=== PATIENT | female | born 1995 | race Caucasian/White ===

== ENCOUNTER 2017-02-18 11:09 | Emergency (ER) | payer OTHER ==
[2017-02-18 11:30] VITALS: TEMP 99.1; O2SAT 100
--- NOTE | 2017-02-18 11:36 | ED.PDOC ---
History of Present Illness - General Chief Complaint: Abdominal Pain Stated Complaint: N,V,RLQ abdominal pain Time Seen by Provider: 02/18/17 11:15 Information Source: patient, RN notes reviewed, Vital Signs reviewed Exam Limitations: no limitations - History of Present Illness Initial Comments: Patient presents to ER from clinic with c/o lower abdominal pain with nausea and vomiting since yesterday. Patient describes the pain as stabbing and across her uterus. Touching makes the pain worse. + urinary frequency but no dysuria. No fever or chills but she is cold. Abdominal Pain Onset Location: suprapubic Pain Radiation: no radiation Quality: moderate, sharpness, stabbing Timing/Duration: 24 hours Improving Factors: nothing Worsening Factors: other - touching Associated Symptoms: nausea/vomiting Review of Systems - Review of Systems Constitutional: States: chills. Denies: fever, malaise EENTM: States: no symptoms reported Respiratory: States: no symptoms reported Cardiology: States: no symptoms reported Gastrointestinal/Abdominal: States: see HPI, abdominal pain, nausea, vomiting. Denies: constipation, diarrhea Genitourinary: States: see HPI, frequency. Denies: dysuria, pain Musculoskeletal: States: no symptoms reported Skin: States: no symptoms reported Neurological: States: no symptoms reported All other Systems: No Change from Baseline Past Medical History (General) - Patient Medical History Hx Congestive Heart Failure: No Hx Diabetes: No Surgical History: no surgical history - Vaccination History Hx Influenza Vaccination: No - Social History Hx Tobacco Use: No - Female History Patient is a Female of Child Bearing Age (10 -59 yrs old): Yes Family Medical History - Family History Mother Family History: Unknown Living Status: Still Living Physical Exam - Physical Exam General Appearance: Alert, Anxious, Comfortable, No apparent distress, Well Developed, Well Groomed, Well Hydrated, Well Nourished Neck: full range of motion, supple, normal inspection Respiratory: lungs clear, normal breath sounds, no respiratory distress, no accessory muscle use Cardiovascular/Chest: regular rate, rhythm, no edema, no gallop, no JVD, no murmur Gastrointestinal/Abdominal: normal bowel sounds, soft, no organomegaly, no pulsatile mass, guarding - RLQ, tenderness - RLQ w/o rebound Back Exam: normal inspection Extremity: normal range of motion, normal inspection, no pedal edema Neurologic: alert, normal mood/affect, oriented x 3 Skin Exam: normal color, warm/dry Special Observations: Other - Reports she is hungry Comments: Vital Signs 02/18/17 11:26 Temperature 99.1 F Pulse Rate [ 87 Right Brachial] Respiratory 16 Rate Blood Pressure 116/80 [Right Arm] O2 Sat by Pulse 100 Oximetry Progress - Progress Progress: 02/18/17 12:55 Discussed results with patient and need for a pelvic sonogram in 6 weeks to make sure ovarian cyst has resolved. Discussed possibility of cyst rupture and pain that can come from that. - Results/Orders Results/Orders: Laboratory Tests 02/18/17 02/18/17 02/18/17 11:35 11:49 11:49 WBC 7.1 RBC 4.28 Hgb 12.5 Hct 37.1 MCV 86.8 MCH 29.3 MCHC 33.7 RDW 14.3 Plt Count 230 MPV 8.9 Absolute Neuts (auto) 4.50 Absolute Lymphs (auto) 2.10 Absolute Monos (auto) 0.40 Absolute Eos (auto) 0.10 Absolute Basos (auto) 0.00 Neutrophils % 63.7 Lymphocytes % 29.8 Monocytes % 5.1 Eosinophils % 1.3 Basophils % 0.1 Sodium 137 Potassium 3.2 L Chloride 104 Carbon Dioxide 26 Anion Gap 10.2 L BUN 7 Creatinine 0.60 BUN/Creatinine Ratio 11.7 Random Glucose 97 Serum Osmolality 271.7 L Calcium 9.4 Total Bilirubin 0.7 AST 18 ALT 15 Alkaline Phosphatase 49 L Serum Total Protein 7.8 Albumin 4.7 Globulin 3.1 Albumin/Globulin Ratio 1.5 Urine Color Yellow Urine Appearance Clear Urine pH 7.0 Ur Specific [place] 1.025 Urine Protein Negative Urine Glucose (UA) Negative Urine Ketones Trace Urine Blood Negative Urine Nitrite Negative Urine Bilirubin Negative Urine Urobilinogen 1.0 Ur Leukocyte Esterase Negative Urine RBC 0 Urine WBC 0-1 Ur Epithelial Cells 5-10 Urine Bacteria Rare Urine HCG, Qual 02/18/17 11:49 WBC RBC Hgb Hct MCV MCH MCHC RDW Plt Count MPV Absolute Neuts (auto) Absolute Lymphs (auto) Absolute Monos (auto) Absolute Eos (auto) Absolute Basos (auto) Neutrophils % Lymphocytes % Monocytes % Eosinophils % Basophils % Sodium Potassium Chloride Carbon Dioxide Anion Gap BUN Creatinine BUN/Creatinine Ratio Random Glucose Serum Osmolality Calcium Total Bilirubin AST ALT Alkaline Phosphatase Serum Total Protein Albumin Globulin Albumin/Globulin Ratio Urine Color Urine Appearance Urine pH Ur Specific [place] Urine Protein Urine Glucose (UA) Urine Ketones Urine Blood Urine Nitrite Urine Bilirubin Urine Urobilinogen Ur Leukocyte Esterase Urine RBC Urine WBC Ur Epithelial Cells Urine Bacteria Urine HCG, Qual Negative - EKG/XRAY/CT CT Ordered: Yes - Abd/Pel: 16mm evolving follicular ovarian cyst, o/w normal per Radiologist Departure - Departure Clinical Impression: Ovarian cyst, right Nausea & vomiting Qualifiers: Vomiting type: bilious vomiting Qualified Code(s): R11.14 - Bilious vomiting Time of Disposition: 12:57 Disposition: Discharge to Home or Self Care Condition: Good Departure Forms: ED Discharge - Pt. Copy, Patient Portal Self Enrollment, Work Release Form Instructions: DI for Ovarian Cyst Diet: resume usual diet Activity: increase activity as tolerated Prescriptions: Ondansetron [Zofran Odt] 4 mg PO Q6HR PRN #20 tab PRN Reason: Nausea/Vomiting Home Medications: Ambulatory Orders Cholecalciferol [Vitamin D3] 5,000 unit PO DAILY 02/18/17 Ondansetron [Zofran Odt] 4 mg PO Q6HR PRN #20 tab 02/18/17 Additional Instructions: Follow up with PCP for pelvic sonogram in 6 weeks
[2017-02-18] MEDS ORDERED: ONDANSETRON INJ 4 MG/2 ML VIAL IV ONE (11:39)
--- NOTE | 2017-02-18 12:43 | CT ---
Study: CT abdomen and pelvis. Indication: RLQ abd pain Technique: Venous and delayed phase CT imaging of the abdomen and pelvis obtained after intravenous administration of contrast. This exam was performed according to our departmental dose-optimization program, which includes automated exposure control, adjustment of the mA and/or kV according to patient size and/or use of iterative reconstruction technique. Comparison: None. Findings: Lower chest, liver, gallbladder, pancreas, spleen, adrenal glands, left kidney, uterus, and left adnexa are unremarkable. Tiny subcentimeter right renal cyst. A presumed involuting right ovarian follicular cyst noted measuring 16 mm. It demonstrates thickened enhancing gomez and low density centrally and is ultimately nonspecific by CT and given the complexity. Stomach, small bowel, colon, and appendix unremarkable. No free fluid. No free air. No pathologically enlarged lymphadenopathy. No acute osseous abnormality. Impression: Normal CT appearance of the appendix. Indeterminate complex cystic right ovarian lesion but likely involuting ovarian follicle. Pelvic sonogram could better evaluate. Electronically signed by: Maynor Quiles MD 02/18/2017 12:42 PM [employer]
[2017-02-18 13:11] VITALS: BP 107/72
== END 2017-02-18 13:11 | disposition home or self-care (01) ==
LOC: ER 11:09
DX: N83.201 Unspecified ovarian cyst, right side (principal); R11.14 Bilious vomiting
CPT/HCPCS: 36415; 74177; 80053; 81001; 81025; 85025; J2405

== ENCOUNTER 2017-03-29 21:09 | Emergency (ER) | payer SELFPAY ==
[2017-03-30 00:32] VITALS: O2SAT 100
--- NOTE | 2017-03-30 01:20 | ED.PDOC ---
History of Present Illness - General Chief Complaint: Respiratory Problem Stated Complaint: chills, ear pain, and sore throat. Time Seen by Provider: 03/30/17 01:14 Source: patient Exam Limitations: no limitations - History of Present Illness Initial Comments: Meera Dale 21 y/o female brought by mom with left earache ,nasal congestion and cough since yesterday .Had used ciprodex but not working. Timing/Duration: yesterday Severity: moderate EENT Location: ear (L), nose Prearrival Treatment: other - see hpi Presenting Symptoms: see hpi Improving Factors: nothing Worsening Factors: other - see hpi Associated Symptoms: other - see hpi Allergies/Adverse Reactions: Allergies Cefprozil [From Cefzil] Allergy (Verified 03/30/17 00:32) Home Medications: Ambulatory Orders Cholecalciferol [Vitamin D3] 5,000 unit PO DAILY 02/18/17 Ondansetron [Zofran Odt] 4 mg PO Q6HR PRN #20 tab 02/18/17 Amoxicillin [Amoxil] 1,000 mg PO BID #40 cap 03/30/17 Review of Systems - Review of Systems Constitutional: States: no symptoms reported EENTM: States: see HPI Respiratory: States: no symptoms reported Cardiology: States: no symptoms reported Gastrointestinal/Abdominal: States: no symptoms reported All other Systems: Reviewed and Negative, No Change from Baseline Past Medical History (General) - Patient Medical History Hx Congestive Heart Failure: No Hx Diabetes: No Hx Other PMH: Yes - multiple sclerosis Surgical History: no surgical history - Vaccination History Hx Influenza Vaccination: No Immunizations Up to Date: Yes - Social History Hx Tobacco Use: No Family Medical History - Family History Mother Family History: Unknown Living Status: Still Living Physical Exam - Physical Exam General Appearance: Alert, Comfortable, No apparent distress Eye Exam: bilateral normal Ear Exam: left ear: TM red, bilateral ear: auricle normal, canal normal Nasal Exam: other - nasal congestion left >right Throat Exam: normal mouth inspection, other - post nasal drip Neck: non-tender, full range of motion, normal inspection, trachea midline Cardiovascular/Respiratory: regular rate, rhythm, no M/R/G, normal peripheral pulses Abdominal Exam: non-tender, no organomegaly Neurologic: no motor/sensory deficits, alert, oriented x 3 Skin Exam: normal color, warm/dry Progress - Progress Progress: 03/30/17 01:26 Last Vital Signs Temp 99.0 F 03/30/17 00:28 Pulse 107 H 03/30/17 00:28 Resp 18 03/30/17 00:28 BP 113/65 03/30/17 00:28 Pulse Ox 100 03/30/17 00:28 - Results/Orders Results/Orders: Flu swab negative Departure - Departure Clinical Impression: Left otitis media Qualifiers: Otitis media type: unspecified Chronicity: unspecified Qualified Code(s): H66.92 - Otitis media, unspecified, left ear Upper respiratory infection Qualifiers: URI type: unspecified URI Qualified Code(s): J06.9 - Acute upper respiratory infection, unspecified Disposition: Discharge to Home or Self Care Condition: Fair Departure Forms: ED Discharge - Pt. Copy, Patient Portal Self Enrollment Instructions: Middle Ear Infection Prescriptions: Amoxicillin [Amoxil] 1,000 mg PO BID #40 cap Home Medications: Ambulatory Orders Cholecalciferol [Vitamin D3] 5,000 unit PO DAILY 02/18/17 Ondansetron [Zofran Odt] 4 mg PO Q6HR PRN #20 tab 02/18/17 Amoxicillin [Amoxil] 1,000 mg PO BID #40 cap 03/30/17 Additional Instructions: Con tinue with Afrin 2 sprays each nostril am/pm 3 days on 3 days off for nasal congestion;Aleve 1-2 tablets am/pm for pain (over the counter)
[2017-03-30] MEDS ORDERED: AMOXICILLIN 500 MG CAP PO ONE (01:27)
[2017-03-30] MEDS ORDERED: OXYMETAZOLINE NASAL SPRAY 15 ML BTTL BNAS PRN (01:32)
[2017-03-30 02:04] VITALS: BP 116/74; TEMP 99.9
== END 2017-03-30 02:04 | disposition home or self-care (01) ==
LOC: ER 21:09
DX: H66.92 Otitis media, unspecified, left ear (principal); J06.9 Acute upper respiratory infection, unspecified; G35 Multiple sclerosis; Z88.8 Allergy status to other drugs, medicaments and biological substances

== ENCOUNTER 2019-06-27 11:33 | Emergency (ER) | payer BC ==
--- NOTE | 2019-06-27 12:43 | ED.PDOC ---
History of Present Illness - General Chief Complaint: General Stated Complaint: Fatigue, numbness Time Seen by Provider: 06/27/19 12:24 Source: patient, RN notes reviewed, Vital Signs reviewed, family - Mother Exam Limitations: no limitations - History of Present Illness Initial Comments: Patient is a 23-year-old white female who presents with complaints of dizziness, fatigue, numbness in her arms and hands, being off balance and feeling like her MS is in flare. Patient has not been under treatment for over 2 years as she has had no health insurance. She recently obtained health insurance. She has no PCP or neurologist that she follows up with. Nothing makes this dizziness, numbness and weakness better or worse. Patient denies any headaches, fever, chills, nausea, vomiting, chest pain, shortness of breath. Patient admits to intermittent diarrhea. Timing/Duration: 1 week Severity: moderate Improving Factors: nothing Worsening Factors: nothing Associated Symptoms: malaise, weakness Allergies/Adverse Reactions: Allergies Cefprozil [From Cefzil] Allergy (Verified 03/30/17 00:32) Home Medications: Ambulatory Orders Cholecalciferol [Vitamin D3] 5,000 unit PO DAILY 02/18/17 Methylprednisolone [Medrol Dose Mac] 4 mg PO DAILY 6 Days #21 tab 06/27/19 Review of Systems - Review of Systems Constitutional: States: see HPI, malaise, weakness. Denies: chills, diaphoresis, fever EENTM: States: no symptoms reported. Denies: blurred vision, double vision, nose congestion, throat swelling, mouth swelling Respiratory: States: no symptoms reported. Denies: cough, short of breath, stridor, wheezing Cardiology: States: no symptoms reported. Denies: chest pain, palpitations, syncope Gastrointestinal/Abdominal: States: see HPI, diarrhea. Denies: abdominal pain, nausea, vomiting Genitourinary: States: see HPI, frequency. Denies: discharge, hematuria Musculoskeletal: States: no symptoms reported. Denies: back pain, muscle pain, neck pain Skin: States: no symptoms reported. Denies: change in color, rash Neurological: States: see HPI, weakness. Denies: paresthesia, tingling, tremors Endocrine: States: no symptoms reported. Denies: excessive sweating, in tolerance to cold, intolerance to heat Hematologic/Lymphatic: States: no symptoms reported. Denies: anemia, easy bleeding, easy bruising All other Systems: Reviewed and Negative Past Medical History (General) - Patient Medical History Hx Congestive Heart Failure: No Hx Diabetes: No - Vaccination History Hx Influenza Vaccination: No - Social History Hx Tobacco Use: No Family Medical History - Family History Mother Family History: Unknown Living Status: Still Living Physical Exam - Physical Exam General Appearance: Alert, Comfortable, Well Developed, Well Hydrated, Well Nourished Eye Exam: bilateral normal Ears, Nose, Throat: hearing grossly normal, normal pharynx Neck: non-tender, full range of motion, supple, normal inspection Respiratory: chest non-tender, lungs clear, normal breath sounds, no respiratory distress, no accessory muscle use Cardiovascular/Chest: normal peripheral pulses, regular rate, rhythm, no edema, no gallop, no JVD, no murmur Peripheral Pulses: radial,right: 2+, radial,left: 2+ Gastrointestinal/Abdominal: normal bowel sounds, soft, tenderness - Suprapubic Back Exam: normal inspection, no CVA tenderness, no vertebral tenderness Extremity: normal range of motion, non-tender, normal inspection, no pedal edema, no calf tenderness 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 06/27/19 13:23 Will start patient on a Medrol Dosepak and refer to primary care for referral out to neurology for further care. I discussed this plan of care with the patient and her mother and they voiced understanding and agreement. Crescencio Cannon M.D. #[id number] - Results/Orders Results/Orders: Laboratory Results - last 24 hr 06/27/19 12:24 Urine Color Yellow Urine Appearance Clear Urine pH 7.0 Ur Specific [place] 1.015 Urine Protein Negative Urine Glucose (UA) Negative Urine Ketones Negative Urine Blood Negative Urine Nitrite Negative Urine Bilirubin Negative Urine Urobilinogen 0.2 Ur Leukocyte Esterase Negative Urine RBC 0 Urine WBC 0 Ur Epithelial Cells 1-3 Amorphous Sediment 1+ Urine Bacteria 0 Departure - Departure Clinical Impression: Multiple sclerosis Time of Disposition: 13:26 Disposition: Discharge to Home or Self Care Condition: Good Departure Forms: ED Discharge - Pt. Copy, Patient Portal Self Enrollment Diet: resume usual diet Activity: increase activity as tolerated Referrals: Leander Smith MD [Primary Care Provider] - 1-5 Days Prescriptions: Methylprednisolone [Medrol Dose Mac] 4 mg PO DAILY 6 Days #21 tab Home Medications: Ambulatory Orders Cholecalciferol [Vitamin D3] 5,000 unit PO DAILY 02/18/17 Methylprednisolone [Medrol Dose Mac] 4 mg PO DAILY 6 Days #21 tab 06/27/19
[2019-06-27 13:38] VITALS: BP 105/64; TEMP 98.1; O2SAT 99
== END 2019-06-27 13:37 | disposition home or self-care (01) ==
LOC: ER 11:33
DX: G35 Multiple sclerosis (principal); R42 Dizziness and giddiness; R53.83 Other fatigue; R20.0 Anesthesia of skin; Z88.1 Allergy status to other antibiotic agents

== ENCOUNTER 2019-11-03 13:59 | Emergency (ER) | payer BC ==
--- NOTE | 2019-11-03 14:19 | ED.PDOC ---
History of Present Illness - General Time Seen by Provider: 11/03/19 14:07 Source: patient, RN notes reviewed, Vital Signs reviewed, EMS notes reviewed, EMS Exam Limitations: no limitations - History of Present Illness Initial Comments: 23-year-old female who presents by EMS for nausea, anxiety and feeling short of breath. 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 After about 15 minutes, she began to feel anxious, chest tightness, shortness of breath and nausea. She went and sat down inside in the air conditioned area and began to feel improved. EMS was called to bring her to ED for further evaluation. She denies chest pain at this time. She denies any recent fever, vomiting, diarrhea, cough or sore throat. Last menstrual period was 1 week ago. She denies any dysuria or hematuria. Allergies/Adverse Reactions: Allergies Cefprozil [From Cefzil] Allergy (Verified 11/03/19 14:26) Home Medications: Ambulatory Orders Cholecalciferol [Vitamin D3] 5,000 unit PO DAILY 02/18/17 Cyanocobalamin [B12] 1,000 mcg PO DAILY 11/03/19 Potassium Chloride Tab [K-Dur] 20 meq PO DAILY #10 tab 11/03/19 Sulfamethoxazole-Trimethoprim [Bactrim Ds 800-160 mg] 1 tab PO BID 7 Days #14 tab 11/03/19 Review of Systems - Review of Systems Constitutional: Denies: chills, fever, weakness EENTM: Denies: blurred vision, throat pain, throat swelling Respiratory: States: short of breath. Denies: cough, wheezing Cardiology: Denies: edema, palpitations, syncope Gastrointestinal/Abdominal: States: nausea. Denies: abdominal pain, vomiting Genitourinary: Denies: dysuria, frequency, hematuria Musculoskeletal: Denies: back pain, neck pain Skin: States: no symptoms reported Neurological: States: anxiety. Denies: headache, paresthesia, seizure All other Systems: Reviewed and Negative Past Medical History (General) - Patient Medical History Hx Congestive Heart Failure: No Hx Diabetes: No - Vaccination History Hx Tetanus, Diphtheria Vaccination: No Hx Influenza Vaccination: No Hx Pneumococcal Vaccination: No - Social History Hx Tobacco Use: No Hx Alcohol Use: No Family Medical History - Family History Mother Family History: Unknown Living Status: Still Living Physical Exam - Physical Exam General Appearance: Alert, Comfortable, No apparent distress Neck: non-tender, full range of motion, supple Respiratory: chest non-tender, lungs clear, normal breath sounds, no respiratory distress, no accessory muscle use Cardiovascular/Chest: regular rate, rhythm, no edema, no murmur Gastrointestinal/Abdominal: non tender, soft, no pulsatile mass Back Exam: no CVA tenderness, no vertebral tenderness Extremity: normal range of motion, non-tender, no pedal edema, no calf tenderness 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 In ED, patient has no symptoms and vital signs have been stable. Chest x-ray, EKG are reassuring. I discussed with patient labs showing a urinary tract infection and mildly low potassium. Will treat with antibiotic for UTI and potassium supplement and have her blood rechecked within 1 week by her PCP. Patient feels comfortable going home and will follow up with PCP for continued evaluation. Strict return precautions given. - Results/Orders Results/Orders: CHEST XRAY EXAM: XR Chest, 1 View CLINICAL HISTORY: The patient is 23 years old and is Female; short of breath TECHNIQUE: Single view of the chest. COMPARISON: No relevant prior studies available. FINDINGS: Lungs: Hyperinflation. No consolidation. Pleural space: Unremarkable. No pneumothorax. Heart: Unrema rkable. No cardiomegaly. Mediastinum: Unremarkable. Bones/joints: No acute fracture. Upper abdomen: No free air in the visualized upper abdomen. IMPRESSION: Hyperinflation. No consolidation. 11/03/19 14:15 EKG .ONCE 11/03/19 14:28 URINE CULTURE W/COLONY COUNT Stat Laboratory Results - last 24 hr 11/03/19 11/03/19 11/03/19 13:14 13:14 13:14 WBC 7.9 RBC 4.30 Hgb 13.4 Hct 38.6 MCV 89.7 MCH 31.0 MCHC 34.6 RDW 13.0 Plt Count 269 MPV 8.9 Absolute Neuts (auto) 4.20 Absolute Lymphs (auto) 3.20 Absolute Monos (auto) 0.40 Absolute Eos (auto) 0.10 Absolute Basos (auto) 0.00 Neutrophils % 52.3 Lymphocytes % 40.1 Monocytes % 5.6 Eosinophils % 1.8 Basophils % 0.2 Sodium 138 Potassium 3.1 L Chloride 105 Carbon Dioxide 20 L Anion Gap 16.1 BUN 7 Creatinine 0.63 BUN/Creatinine Ratio 11.1 Random Glucose 95 Serum Osmolality 273.5 L Calcium 9.2 Total Bilirubin 0.8 AST 20 ALT 20 Alkaline Phosphatase 55 Serum Total Protein 8.1 Albumin 4.8 Globulin 3.3 Albumin/Globulin Ratio 1.5 Lipase 23 Serum HCG, Qual Negative Urine Color Urine Appearance Urine pH Ur Specific [place] Urine Protein Urine Glucose (UA) Urine Ketones Urine Blood Urine Nitrite Urine Bilirubin Urine Urobilinogen Ur Leukocyte Esterase Urine RBC Urine WBC Ur Epithelial Cells Urine Bacteria 11/03/19 14:28 WBC RBC Hgb Hct MCV MCH MCHC RDW Plt Count MPV Absolute Neuts (auto) Absolute Lymphs (auto) Absolute Monos (auto) Absolute Eos (auto) Absolute Basos (auto) Neutrophils % Lymphocytes % Monocytes % Eosinophils % Basophils % Sodium Potassium Chloride Carbon Dioxide Anion Gap BUN Creatinine BUN/Creatinine Ratio Random Glucose Serum Osmolality Calcium Total Bilirubin AST ALT Alkaline Phosphatase Serum Total Protein Albumin Globulin Albumin/Globulin Ratio Lipase Serum HCG, Qual Urine Color Yellow Urine Appearance Cloudy Urine pH 8.5 H Ur Specific [place] 1.020 Urine Protein Negative Urine Glucose (UA) Negative Urine Ketones Negative Urine Blood Negative Urine Nitrite Negative Urine Bilirubin Negative Urine Urobilinogen 0.2 Ur Leukocyte Esterase Large H Urine RBC 0-1 Urine WBC 20-30 H Ur Epithelial Cells >50 Urine Bacteria 1+ Departure - Departure Clinical Impression: Atypical chest pain, Hypokalemia UTI (urinary tract infection) Qualifiers: Urinary tract infection type: acute cystitis Hematuria presence: without hematuria Qualified Code(s): N30.00 - Acute cystitis without hematuria Time of Disposition: 15:31 Disposition: Discharge to Home or Self Care Condition: Good Instructions: Urinary Tract Infection, Adult (DC) Diet: resume usual diet Activity: increase activity as tolerated Referrals: Leander Smith MD [Primary Care Provider] - 1-2 Days Prescriptions: Sulfamethoxazole-Trimethoprim [Bactrim Ds 800-160 mg] 1 tab PO BID 7 Days #14 tab Potassium Chloride Tab [K-Dur] 20 meq PO DAILY #10 tab Home Medications: Ambulatory Orders Cholecalciferol [Vitamin D3] 5,000 unit PO DAILY 02/18/17 Cyanocobalamin [B12] 1,000 mcg PO DAILY 11/03/19 Potassium Chloride Tab [K-Dur] 20 meq PO DAILY #10 tab 11/03/19 Sulfamethoxazole-Trimethoprim [Bactrim Ds 800-160 mg] 1 tab PO BID 7 Days #14 tab 11/03/19
[2019-11-03] MEDS: SODIUM CHLORIDE 0.9% 1000ML 1,000 ML IVS ONE (14:22)
[2019-11-03] MEDS: ONDANSETRON INJ 4 MG/2 ML VIAL IV ONE (14:40)
[2019-11-03 15:06] VITALS: O2SAT 100
--- NOTE | 2019-11-03 15:25 | RAD ---
EXAM: XR Chest, 1 View CLINICAL HISTORY: The patient is 23 years old and is Female; short of breath TECHNIQUE: Single view of the chest. COMPARISON: No relevant prior studies available. FINDINGS: Lungs: Hyperinflation. No consolidation. Pleural space: Unremarkable. No pneumothorax. Heart: Unremarkable. No cardiomegaly. Mediastinum: Unremarkable. Bones/joints: No acute fracture. Upper abdomen: No free air in the visualized upper abdomen. IMPRESSION: Hyperinflation. No consolidation. Electronically signed by: Nidhi Moctezuma MD 11/03/2019 3:24 PM CDT
[2019-11-03 15:45] VITALS: BP 119/80; TEMP 97.4
== END 2019-11-03 15:40 | disposition home or self-care (01) ==
LOC: ER 13:59
DX: R07.89 Other chest pain (principal); N30.00 Acute cystitis without hematuria; E87.6 Hypokalemia; R06.02 Shortness of breath; Z88.1 Allergy status to other antibiotic agents
CPT/HCPCS: 36415; 71045; 80053; 81001; 83690; 84703; 85025; 87086; 93005; J2405; J7030

== ENCOUNTER 2019-11-07 10:42 | Emergency (ER) | payer BC ==
[2019-11-07] MEDS ORDERED: PROMETHAZINE HCL INJ 25 MG in SODIUM CHLORIDE 0.9% 50ML 50 ML IVPB ONE (11:11)
[2019-11-07] MEDS ORDERED: SUCRALFATE 1 GM/10 ML 1 GM UD PO ONE (11:11)
[2019-11-07] MEDS ORDERED: SODIUM CHLORIDE 0.9% 1000ML 1,000 ML IVS ONE (11:11)
--- NOTE | 2019-11-07 12:04 | RAD ---
EXAM DESCRIPTION: Abdomen Series CLINICAL HISTORY: 23 years Female, nv, d COMPARISON: None. Findings: 3 view(s)/radiograph(s) No acute cardiac pulmonary abnormality. No free air beneath the diaphragm. Nonobstructive bowel gas pattern. Moderate stool volume. No suspicious calcification. No acute osseous abnormality. IMPRESSION: No acute radiographic abnormality in the chest or abdomen. Electronically signed by: Bacilio Horta MD 11/07/2019 12:02 PM CDT
[2019-11-07] MEDS ORDERED: PENICILLIN BENZATHINE 1.2 MU 1.2 MU/2 ML SYG IM ONE (12:13)
--- NOTE | 2019-11-07 14:05 | ED.PDOC ---
History of Present Illness - General Chief Complaint: General Time Seen by Provider: 11/07/19 10:44 Source: patient Exam Limitations: no limitations - History of Present Illness Initial Comments: The patient is a 23-year-old female presented emergency room after for 5 episodes of vomiting over the last 24 hours. Mild epigastric discomfort. She is already on an antibiotic for a urinary tract infection. She does have a mild sore throat. She has been feeling tired and a little weak with exertion. Timing/Duration: 24 hours Severity: mild Improving Factors: nothing Worsening Factors: nothing Associated Symptoms: loss of appetite, malaise, nausea/vomiting Allergies/Adverse Reactions: Allergies Cefprozil [From Cefzil] Allergy (Verified 11/03/19 14:26) Home Medications: Ambulatory Orders Cholecalciferol [Vitamin D3] 5,000 unit PO DAILY 02/18/17 Cyanocobalamin [B12] 1,000 mcg PO DAILY 11/03/19 Potassium Chloride Tab [K-Dur] 20 meq PO DAILY #10 tab 11/03/19 Sulfamethoxazole-Trimethoprim [Bactrim Ds 800-160 mg] 1 tab PO BID 7 Days #14 tab 11/03/19 Ondansetron Odt [Zofran ODT] 4 mg PO Q8HR PRN #5 tab 11/07/19 Sucralfate Tab [Carafate Tab] 1 gm PO QID #60 tab 11/07/19 Review of Systems - Review of Systems Constitutional: States: malaise EENTM: States: throat pain Respiratory: States: no symptoms reported Cardiology: States: no symptoms reported Gastrointestinal/Abdominal: States: nausea, vomiting Genitourinary: States: no symptoms reported Musculoskeletal: States: no symptoms reported Skin: States: no symptoms reported Neurological: States: no symptoms reported - Chronic issues only Endocrine: States: no symptoms reported All other Systems: No Change from Baseline Past Medical History (General) - Patient Medical History Hx Seizures: No Hx Stroke: No Hx of COPD: No Hx Cardiac Disorders: No Hx Congestive Heart Failure: No Hx Hypertension: No Hx Diabetes: No Hx Cancer: No Surgical History: no surgical history - Vaccination History Hx Tetanus, Diphtheria Vaccination: No Hx Influenza Vaccination: No Hx Pneumococcal Vaccination: No - Social History Hx Tobacco Use: No Hx Alcohol Use: No Hx Substance Use: No Hx Substance Use Treatment: No Hx Depression: No - Female History Patient : No Family Medical History - Family History Mother Family History: Unknown Living Status: Still Living Hx Family Hypertension: Yes Physical Exam - Physical Exam General Appearance: Alert, No apparent distress Eye Exam: bilateral normal Ears, Nose, Throat: hearing grossly normal, pharyngeal erythema Neck: full range of motion, supple Respiratory: lungs clear, normal breath sounds, no respiratory distress, no accessory muscle use Cardiovascular/Chest: normal peripheral pulses, regular rate, rhythm, no edema Peripheral Pulses: radial,right: 2+, radial,left: 2+ Gastrointestinal/Abdominal: soft, other - Mild epigastric burning Rectal Exam: deferred Back Exam: no CVA tenderness, no vertebral tenderness Extremity: normal range of motion, no pedal edema, normal capillary refill 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 The patient did test positive for strep throat. She was given a dose of Bicillin L-A. Urinalysis does show some improvement so her oral antibiotic will not be changed. She can take this antibiotic with food to prevent stomach upset. She will be written for Zofran to help control any nausea. She will also be written for Carafate 4 times daily for the next 2 weeks for any gastritis issues. She is to maintain a bland diet and keep well-hydrated. ER warnings are given. She did receive a l iter of IV fluids here today. [email or web address] [id number] - Results/Orders Results/Orders: Laboratory Tests 11/07/19 11/07/19 11/07/19 11:25 11:25 11:25 WBC 4.7 L RBC 4.48 Hgb 14.1 Hct 39.8 MCV 88.8 MCH 31.5 H MCHC 35.4 RDW 13.1 Plt Count 232 MPV 8.7 Absolute Neuts (auto) 3.10 Absolute Lymphs (auto) 1.10 Absolute Monos (auto) 0.30 Absolute Eos (auto) 0.10 Absolute Basos (auto) 0.00 Neutrophils % 65.9 Lymphocytes % 24.2 Monocytes % 7.1 Eosinophils % 2.6 Basophils % 0.2 Sodium 134 L Potassium 4.2 Chloride 102 Carbon Dioxide 22 Anion Gap 14.2 BUN 11 Creatinine 0.86 BUN/Creatinine Ratio 12.8 Random Glucose 103 Serum Osmolality 267.9 L Lactic Acid 1.7 Calcium 9.6 Magnesium 2.1 Total Bilirubin 0.9 AST 20 ALT 23 Alkaline Phosphatase 55 Creatine Kinase 59 CK-MB (CK-2) 0.7 CK-MB (CK-2) % Not Reportable Troponin I < 0.02 Serum Total Protein 8.0 Albumin 5.0 Globulin 3.0 Albumin/Globulin Ratio 1.7 Amylase 80 Lipase 26 TSH 1.42 Serum HCG, Qual Urine Color Urine Appearance Urine pH Ur Specific [place] Urine Protein Urine Glucose (UA) Urine Ketones Urine Blood Urine Nitrite Urine Bilirubin Urine Urobilinogen Ur Leukocyte Esterase Urine RBC Urine WBC Ur Epithelial Cells Urine Bacteria Urine Opiates Screen Urine Barbiturates Ur Phencyclidine Scrn U Amphetamin/Meth Scrn U Benzodiazepines Scrn U Cocaine Metab Screen U Cannabinoids Screen Group A Strep Rapid 11/07/19 11/07/19 11/07/19 11:25 11:25 12:47 WBC RBC Hgb Hct MCV MCH MCHC RDW Plt Count MPV Absolute Neuts (auto) Absolute Lymphs (auto) Absolute Monos (auto) Absolute Eos (auto) Absolute Basos (auto) Neutrophils % Lymphocytes % Monocytes % Eosinophils % Basophils % Sodium Potassium Chloride Carbon Dioxide Anion Gap BUN Creatinine BUN/Creatinine Ratio Random Glucose Serum Osmolality Lactic Acid Calcium Magnesium Total Bilirubin AST ALT Alkaline Phosphatase Creatine Kinase CK-MB (CK-2) CK-MB (CK-2) % Troponin I Serum Total Protein Albumin Globulin Albumin/Globulin Ratio Amylase Lipase TSH Serum HCG, Qual Negative Urine Color Urine Appearance Urine pH Ur Specific [place] Urine Protein Urine Glucose (UA) Urine Ketones Urine Blood Urine Nitrite Urine Bilirubin Urine Urobilinogen Ur Leukocyte Esterase Urine RBC Urine WBC Ur Epithelial Cells Urine Bacteria Urine Opiates Screen Negative Urine Barbiturates Negative Ur Phencyclidine Scrn Negative U Amphetamin/Meth Scrn Negative U Benzodiazepines Scrn Negative U Cocaine Metab Screen Negative U Cannabinoids Screen Negative Group A Strep Rapid Positive H 11/07/19 12:47 WBC RBC Hgb Hct MCV MCH MCHC RDW Plt Count MPV Absolute Neuts (auto) Absolute Lymphs (auto) Absolute Monos (auto) Absolute Eos (auto) Absolute Basos (auto) Neutrophils % Lymphocytes % Monocytes % Eosinophils % Basophils % Sodium Potassium Chloride Carbon Dioxide Anion Gap BUN Creatinine BUN/Creatinine Ratio Random Glucose Serum Osmolality Lactic Acid Calcium Magnesium Total Bilirubin AST ALT Alkaline Phosphatase Creatine Kinase CK-MB (CK-2) CK-MB (CK-2) % Troponin I Serum Total Protein Albumin Globulin Albumin/Globulin Ratio Amylase Lipase TSH Serum HCG, Qual Urine Color Yellow Urine Appearance Clear Urine pH 6.0 Ur Specific [place] 1.010 Urine Protein Negative Urine Glucose (UA) Negative Urine Ketones Negative Urine Blood Negative Urine Nitrite Negative Urine Bilirubin Negative Urine Urobilinogen 0.2 Ur Leukocyte Esterase Small H Urine RBC 0-1 Urine WBC 10-20 H Ur Epithelial Cells 10-20 Urine Bacteria 1+ Urine Opiates Screen Urine Barbiturates Ur Phencyclidine Scrn U Amphetamin/Meth Scrn U Benzodiazepines Scrn U Cocaine Metab Screen U Cannabinoids Screen Group A Strep Rapid Acute abdominal series appears benign. Rapid strep is positive. Departure - Departure Clinical Impression: Strep throat, Mild dehydration, Cystitis Acute gastritis Qualifiers: Gastritis type: unspecified gastritis Gastritis bleeding: without bleeding Qualified Code(s): K29.00 - Acute gastritis without bleeding Disposition: Discharge to Home or Self Care Condition: Fair Departure Forms: ED Discharge - Pt. Copy, Patient Portal Self Enrollment Diet: bland diet Activity: increase activity as tolerated Referrals: Shay Martines MD [Primary Care Provider] - 1-2 Weeks Prescriptions: Ondansetron Odt [Zofran ODT] 4 mg PO Q8HR PRN #5 tab PRN Reason: Nausea--Moderate Sucralfate Tab [Carafate Tab] 1 gm PO QID #60 tab Home Medications: Ambulatory Orders Cholecalciferol [Vitamin D3] 5,000 unit PO DAILY 02/18/17 Cyanocobalamin [B12] 1,000 mcg PO DAILY 11/03/19 Potassium Chloride Tab [K-Dur] 20 meq PO DAILY #10 tab 11/03/19 Sulfamethoxazole-Trimethoprim [Bactrim Ds 800-160 mg] 1 tab PO BID 7 Days #14 tab 11/03/19 Ondansetron Odt [Zofran ODT] 4 mg PO Q8HR PRN #5 tab 11/07/19 Sucralfate Tab [Carafate Tab] 1 gm PO QID #60 tab 11/07/19 Additional Instructions: The patient is a 23-year-old female presented emergency room secondary to a couple of episodes of vomiting today and yesterday along with generally feeling poorly and having possibly a mild sore throat. The patient did test positive for strep throat. She was given a dose of Bicillin L-A. Urinalysis does show some improvement so her oral antibiotic will not be changed. She can take this antibiotic with food to prevent stomach upset. She will be written for Zofran to help control any nausea. She will also be written for Carafate 4 times daily for the next 2 weeks for any gastritis issues. She is to maintain a bland diet and keep well-hydrated. ER warnings are given. She did receive a liter of IV fluids here today.
[2019-11-07 14:15] VITALS: BP 94/63; TEMP 97.6; O2SAT 99
== END 2019-11-07 14:15 | disposition home or self-care (01) ==
LOC: ER 10:42
DX: J02.0 Streptococcal pharyngitis (principal); K29.00 Acute gastritis without bleeding; E86.0 Dehydration; N30.90 Cystitis, unspecified without hematuria
CPT/HCPCS: 36415; 74019; 80053; 80307; 81001; 82150; 82550; 82553; 83605; 83690; 83735; 84443; 84484; 84703; 85025; 87040; 87086; 87880; A4216; J0561; J2550; J7030

== ENCOUNTER → 2020-01-22 | Outpatient (CLI) | payer BC | LOC: YCFC.O 14:18 | PROVIDERS: ATTEND Family Medicine | DX: Z03.818 Encounter for observation for suspected exposure to other biological agents ruled out (principal); R09.81 Nasal congestion ==

== ENCOUNTER 2020-02-01 08:11 | Emergency (ER) | payer BC ==
[2020-02-01 08:27] VITALS: O2SAT 100
--- NOTE | 2020-02-01 09:11 | RAD ---
EXAM: Neck,Soft Tissue INDICATION: 24 years Female, feeling of fullness near larynx COMPARISON: None available FINDINGS: 2 views of the neck soft tissues were performed. Questionable mild thickening of the epiglottis, which could be accentuated due to slight rotation. No apparent prevertebral soft tissue thickening. No radiopaque foreign body. Unremarkable appearance of the neck soft tissues on the frontal view. IMPRESSION: Questionable mild thickening of the epiglottis, which could be accentuated due to slight rotation. However, in the appropriate clinical setting, this could represent supraglottitis. Electronically signed by: Marcia Schuler MD 02/01/2020 9:10 AM CDT
[2020-02-01] MEDS ORDERED: predniSONE 20 MG TAB PO ONE (09:22)
[2020-02-01] MEDS ORDERED: AMOXICILLIN & POT CLAVULANATE 875 MG TAB PO ONE (09:22)
--- NOTE | 2020-02-01 09:29 | ED.PDOC ---
History of Present Illness - General Chief Complaint: ENT Problem Stated Complaint: uvula swollen Time Seen by Provider: 02/01/20 08:14 Source: patient Exam Limitations: no limitations - History of Present Illness Initial Comments: The patient is a 24-year-old female presented emergency room secondary to reported discomfort around her voicebox. She reports a mild fullness. No difficulty breathing. No drooling. No tripod positioning. No fever. Mild sore throat. Symptoms have been going on about a day to a day and a half. The patient reports that she has been doing a lot of loud singing recently. No runny nose. No known close coronavirus contacts. No nausea vomiting or diarrhea. No hypoxia. No chest pain or palpitations. Timing/Duration: other Severity: mild Improving Factors: nothing Worsening Factors: nothing Associated Symptoms: denies symptoms Allergies/Adverse Reactions: Allergies Cefprozil [From Cefzil] Allergy (Verified 11/03/19 14:26) Home Medications: Ambulatory Orders Cholecalciferol [Vitamin D3] 5,000 unit PO DAILY 02/18/17 Amoxicillin & Pot Clavulanate [Augmentin Tab] 875 mg PO BID #20 tab 02/01/20 predniSONE [Prednisone] 20 mg PO DAILY #5 tab 02/01/20 Review of Systems - Review of Systems Constitutional: States: no symptoms reported EENTM: States: see HPI Respiratory: States: no symptoms reported Cardiology: States: no symptoms reported Gastrointestinal/Abdominal: States: no symptoms reported Genitourinary: States: no symptoms reported Musculoskeletal: States: no symptoms reported Skin: States: no symptoms reported Neurological: States: no symptoms reported Endocrine: States: no symptoms reported All other Systems: No Change from Baseline Past Medical History (General) - Patient Medical History Hx Seizures: No Hx Stroke: No Hx of COPD: No Hx Cardiac Disorders: No Hx Congestive Heart Failure: No Hx Hypertension: No Hx Diabetes: No Hx Cancer: No Surgical History: no surgical history - Vaccination History Hx Tetanus, Diphtheria Vaccination: No Hx Influenza Vaccination: No Hx Pneumococcal Vaccination: No - Social History Hx Tobacco Use: No Hx Alcohol Use: No Hx Substance Use: No Hx Substance Use Treatment: No Hx Depression: No - Female History Patient : No Family Medical History - Family History Mother Family History: Unknown Living Status: Still Living Hx Family Hypertension: Yes Physical Exam - Physical Exam General Appearance: Alert, No apparent distress Eye Exam: bilateral normal Ears, Nose, Throat: hearing grossly normal, normal pharynx - Mild erythema only Neck: non-tender, full range of motion, supple, other - Mild discomfort over around palpation of the area of the larynx. 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 The patient will be covered with Augmentin which would also cover in case this were a very very early case of epiglottitis. Clinically this does not look to be the case however. The patient will be placed on 5 days of low-dose oral prednisone as well to help reduce inflammation around the voicebox. She should refrain from singing for at least the next 3 to 4 days. ER warnings are given. The patient does report a cephalosporin allergy however she has tolerated penicillins before in the past according to her. [email or web address] [id number] 02/01/20 09:33 - Results/Orders Results/Orders: Rapid Covid test is negative. Rapid strep test is positive. X-ray soft tissue of the neck shows possibly very mild swelling of the epiglottic area but most likely due to positioning. This was discussed with the radiologist over the phone as well. Departure - Departure Clinical Impression: Laryngitis, Strep throat Disposition: Discharge to Home or Self Care Condition: Fair Departure Forms: ED Discharge - Pt. Copy, Patient Portal Self Enrollment Instructions: DI for Ear Pain-Adult, Laryngitis (DC), Sore Throat, Adult (DC) Diet: regular diet Activity: increase activity as tolerated Referrals: Shay Martines MD [Primary Care Provider] - 1-2 Weeks Prescriptions: Amoxicillin & Pot Clavulanate [Augmentin Tab] 875 mg PO BID #20 tab predniSONE [Prednisone] 20 mg PO DAILY #5 tab Home Medications: Ambulatory Orders Cholecalciferol [Vitamin D3] 5,000 unit PO DAILY 02/18/17 Amoxicillin & Pot Clavulanate [Augmentin Tab] 875 mg PO BID #20 tab 02/01/20 predniSONE [Prednisone] 20 mg PO DAILY #5 tab 02/01/20 Additional Instructions: The patient is a 24-year-old female presented emergency room with what is most likely simply a laryngitis and pharyngitis, caused by both an acute streptococcal infection as well as irritation from recent singing. The patient will be covered with Augmentin which would also cover in case this were a very very early case of epiglottitis. Clinically this does not look to be the case however. The patient will be placed on 5 days of low-dose oral prednisone as well to help reduce inflammation around the voicebox. She should refrain from singing for at least the next 3 to 4 days. ER warnings are given.
[2020-02-01 09:50] VITALS: BP 119/77; TEMP 97.3
== END 2020-02-01 09:45 | disposition home or self-care (01) ==
LOC: ER 08:11
DX: J02.0 Streptococcal pharyngitis (principal); J04.0 Acute laryngitis; Z20.828 Contact with and (suspected) exposure to other viral communicable diseases; Z88.8 Allergy status to other drugs, medicaments and biological substances
CPT/HCPCS: 70360; 87635; 87880; J7512

== ENCOUNTER → 2020-02-25 | Emergency (ER) | payer BC | LOC: ER 10:00 | DX: S09.90XA Unspecified injury of head, initial encounter (principal); Z53.21 Procedure and treatment not carried out due to patient leaving prior to being seen by health care provider ==

== ENCOUNTER 2020-05-15 11:37 | Emergency (ER) | payer SELFPAY ==
[2020-05-15] MEDS ORDERED: SODIUM CHLORIDE 0.9% 1000ML 1,000 ML IVS ONE (12:02)
[2020-05-15] MEDS ORDERED: ONDANSETRON ODT 8 MG TAB SL ONE (12:02)
--- NOTE | 2020-05-15 13:24 | RAD ---
EXAM DESCRIPTION: Abdomen Flat Upright CLINICAL HISTORY: 24 years Female, abd cramping COMPARISON: November 07, 2019 Findings: Two view(s)/radiograph(s) Location: abdomen Nonobstructive bowel gas pattern. No suspicious calcification. No acute osseous abnormalities. Soft tissues are unremarkable. Small stool volume. No free air. No air-fluid level. Visualized lung bases are clear. IMPRESSION: Nonobstructive bowel gas pattern. Electronically signed by: Bacilio Horta MD 05/15/2020 1:22 PM [facility]
--- NOTE | 2020-05-15 14:54 | ED.PDOC ---
History of Present Illness - General Chief Complaint: Abdominal Pain Stated Complaint: abd pain, nausea and h/a unknown if Time Seen by Provider: 05/15/20 12:01 Source: patient Exam Limitations: no limitations - History of Present Illness Initial Comments: The patient is a 24-year-old female presented emergency room secondary to symptoms progressive over the last couple of weeks of headache, increased abdominal cramping in the lower abdomen and some mild nausea. No real vomiting. No fever. She has had something of a runny nose and a sore throat at one point. She is uncertain if she has coronavirus exposure. Her menstrual cycles are irregular and she has not had a menstrual cycle in a few months. She is uncertain if she is . She denies significant vaginal discharge. She denies pain with intercourse. She showed up today in particular because she is having increased suprapubic cramping. Timing/Duration: other - 2 weeks Severity: moderate Improving Factors: nothing Worsening Factors: nothing Associated Symptoms: loss of appetite, malaise, nausea/vomiting Allergies/Adverse Reactions: Allergies Cefprozil [From Cefzil] Allergy (Verified 11/03/19 14:26) Home Medications: Ambulatory Orders Ciprofloxacin [Cipro] 500 mg PO BID #14 tab 05/15/20 Metronidazole 500 mg PO TID #20 tab 05/15/20 Ondansetron Odt [Zofran ODT] 4 mg PO Q8HR PRN #5 tab 05/15/20 Sucralfate Tab [Carafate Tab] 1 gm PO QID #60 tab 05/15/20 Review of Systems - Review of Systems Constitutional: States: malaise EENTM: States: nose congestion, throat pain - Already resolved Respiratory: States: cough - Mild Cardiology: States: no symptoms reported Gastrointestinal/Abdominal: States: nausea Genitourinary: States: no symptoms reported Musculoskeletal: States: no symptoms reported Skin: States: no symptoms reported Neurological: States: anxiety Endocrine: States: no symptoms reported All other Systems: No Change from Baseline Past Medical History (General) - Patient Medical History Hx Seizures: No Hx Stroke: No Hx of COPD: No Hx Cardiac Disorders: No Hx Congestive Heart Failure: No Hx Hypertension: No Hx Diabetes: No Hx Cancer: No - Vaccination History Hx Tetanus, Diphtheria Vaccination: No Hx Influenza Vaccination: No Hx Pneumococcal Vaccination: No - Social History Hx Tobacco Use: No Hx Alcohol Use: No Hx Substance Use: No Hx Substance Use Treatment: No Hx Depression: No - Female History Patient is a Female of Child Bearing Age (10 -59 yrs old): Yes Patient : - unknown Family Medical History - Family History Mother Family History: Unknown Living Status: Still Living Hx Family Hypertension: Yes Physical Exam - Physical Exam General Appearance: Alert, Anxious, No apparent distress Eye Exam: bilateral normal Ears, Nose, Throat: hearing grossly normal, normal pharynx Neck: full range of motion, supple Respiratory: lungs clear, normal breath sounds, no respiratory distress, no accessory muscle use Cardiovascular/Chest: normal peripheral pulses, regular rate, rhythm, no edema Peripheral Pulses: radial,right: 2+, radial,left: 2+ Gastrointestinal/Abdominal: soft, other - Mild suprapubic discomfort to palpation. Rectal Exam: other - Pelvic exam shows that the patient is actually starting her cycle. No undue fundal or adnexal pain. No obvious abnormal discharge otherwise. 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 Wet prep shows increased white blood cells. GC chlamydia is a send out. Laboratory Results - last 24 hr 05/15/20 05/15/20 05/15/20 12:15 12:15 12:15 WBC 5.7 RBC 4.15 L Hgb 12.7 Hct 36.8 MCV 88.7 MCH 30.6 MCHC 34.5 RDW 13.3 Plt Count 265 MPV 8.8 Absolute Neuts (auto) 3.90 Absolute Lymphs (auto) 1.40 Absolute Monos (auto) 0.30 Absolute Eos (auto) 0.10 Absolute Basos (auto) 0.00 Neutrophils % 68.1 Lymphocytes % 25.0 Monocytes % 4.9 Eosinophils % 1.6 Basophils % 0.4 Sodium 141 Potassium 3.3 L Chloride 109 Carbon Dioxide 24 Anion Gap 11.3 L BUN 9 Creatinine 0.72 BUN/Creatinine Ratio 12.5 Random Glucose 117 H Serum Osmolality 281.0 Lactic Acid Calcium 9.2 Magnesium 2.0 Total Bilirubin 0.9 AST 23 ALT 19 Alkaline Phosphatase 53 Serum Total Protein 7.5 Albumin 4.6 Globulin 2.9 Albumin/Globulin Ratio 1.6 Amylase 64 Lipase 26 TSH 1.25 Serum HCG, Qual Urine Color Urine Appearance Urine pH Ur Specific [place] Urine Protein Urine Glucose (UA) Urine Ketones Urine Blood Urine Nitrite Urine Bilirubin Urine Urobilinogen Ur Leukocyte Esterase Urine RBC Urine WBC Ur Epithelial Cells Urine Bacteria Urine Opiates Screen Negative Urine Barbiturates Negative Ur Phencyclidine Scrn Negative U Amphetamin/Meth Scrn Negative U Benzodiazepines Scrn Negative U Cocaine Metab Screen Negative U Cannabinoids Screen Negative 05/15/20 05/15/20 05/15/20 12:15 12:15 12:15 WBC RBC Hgb Hct MCV MCH MCHC RDW Plt Count MPV Absolute Neuts (auto) Absolute Lymphs (auto) Absolute Monos (auto) Absolute Eos (auto) Absolute Basos (auto) Neutrophils % Lymphocytes % Monocytes % Eosinophils % Basophils % Sodium Potassium Chloride Carbon Dioxide Anion Gap BUN Creatinine BUN/Creatinine Ratio Random Glucose Serum Osmolality Lactic Acid 3.1 H* Calcium Magnesium Total Bilirubin AST ALT Alkaline Phosphatase Serum Total Protein Albumin Globulin Albumin/Globulin Ratio Amylase Lipase TSH Serum HCG, Qual Negative Urine Color Yellow Urine Appearance Sl cloudy Urine pH 8.5 H Ur Specific [place] 1.020 Urine Protein Negative Urine Glucose (UA) Negative Urine Ketones Trace Urine Blood Negative Urine Nitrite Negative Urine Bilirubin Negative Urine Urobilinogen 1.0 Ur Leukocyte Esterase Small H Urine RBC 0-1 Urine WBC 10-20 H Ur Epithelial Cells 30-40 Urine Bacteria 2+ H Urine Opiates Screen Urine Barbiturates Ur Phencyclidine Scrn U Amphetamin/Meth Scrn U Benzodiazepines Scrn U Cocaine Metab Screen U Cannabinoids Screen Progress - Progress Progress: 05/15/20 14:55 The patient is 24-year-old female presented emergency room most likely primarily today due to dysmenorrhea. 2 Aleve twice daily may help with the symptoms. She needs to keep her self well-hydrated she was mildly dehydrated and did have a mild lactic acidosis. She did receive a liter of IV fluids. Additionally the patient appears to possibly have a small urinary tract infection will be placed on ciprofloxacin for this. Wet prep shows a possibility of very mild bacterial vaginosis and she will be placed on metronidazole for that. The patient will be written for Zofran for as needed use to control any nausea and she will be written for Carafate for the next few weeks to reduce gastritis issues. She is to keep her self well-hydrated. ER warnings are given. Keep routine follow-up with primary care doctor otherwise. If the patient is planning on becoming , she should start taking vitamins up to the next weeks. Avoid getting while on antibiotics. [email or web address] [id number] Departure - Departure Clinical Impression: Lactic acidosis, Dehydration, Dysmenorrhea, Bacterial vaginosis Acute cystitis Qualifiers: Hematuria presence: without hematuria Qualified Code(s): N30.00 - Acute cystitis without hematuria Gastritis Qualifiers: Gastritis type: unspecified gastritis Chronicity: acute Gastritis bleeding: without bleeding Qualified Code(s): K29.00 - Acute gastritis without bleeding Disposition: Discharge to Home or Self Care Condition: Fair Departure Forms: ED Discharge - Pt. Copy, Patient Portal Self Enrollment Instructions: DI for Abdominal Pain-Adult, Bacterial Vaginosis (DC), Urinary Tract Infection, Adult (DC), Menstrual Cramps (DC) Diet: bland diet Activity: increase activity as tolerated Referrals: Shay Martines MD [Primary Care Provider] - 1-2 Weeks Prescriptions: Ondansetron Odt [Zofran ODT] 4 mg PO Q8HR PRN #5 tab PRN Reason: Nausea--Moderate Sucralfate Tab [Carafate Tab] 1 gm PO QID #60 tab Ciprofloxacin [Cipro] 500 mg PO BID #14 tab Metronidazole 500 mg PO TID #20 tab Home Medications: Ambulatory Orders Ciprofloxacin [Cipro] 500 mg PO BID #14 tab 05/15/20 Metronidazole 500 mg PO TID #20 tab 05/15/20 Ondansetron Odt [Zofran ODT] 4 mg PO Q8HR PRN #5 tab 05/15/20 Sucralfate Tab [Carafate Tab] 1 gm PO QID #60 tab 05/15/20 Additional Instructions: The patient is 24-year-old female presented emergency room most likely primarily today due to dysmenorrhea. 2 Aleve twice daily may help with the symptoms. She needs to keep her self well-hydrated she was mildly dehydrated and did have a mild lactic acidosis. She did receive a liter of IV fluids. Additionally the patient appears to possibly have a small urinary tract infection will be placed on ciprofloxacin for this. Wet prep shows a possibility of very mild bacterial vaginosis and she will be placed on metronidazole for that. The patient will be written for Zofran for as needed use to control any nausea and she will be written for Carafate for the next few weeks to reduce gastritis issues. She is to keep her self well-hydrated. ER warnings are given. Keep routine follow-up with primary care doctor otherwise. If the patient is planning on becoming , she should start taking vitamins up to the next weeks. Avoid getting while on antibiotics.
[2020-05-15 15:22] VITALS: BP 109/72; TEMP 98.3; O2SAT 97
== END 2020-05-15 15:18 | disposition home or self-care (01) ==
LOC: ER 11:37
DX: N30.00 Acute cystitis without hematuria (principal); K29.00 Acute gastritis without bleeding; E86.0 Dehydration; N94.6 Dysmenorrhea, unspecified; N76.0 Acute vaginitis; E87.2 Acidosis; R05 Cough; Z88.1 Allergy status to other antibiotic agents; Z20.822 Contact with and (suspected) exposure to COVID-19
CPT/HCPCS: 36415; 74019; 80053; 80307; 81001; 82150; 83605; 83690; 83735; 84443; 84703; 85025; 87210; 87491; 87502; 87591; 87635; J7030